=== PATIENT | female | born 1965 | race Caucasian/White ===

== ENCOUNTER 2021-05-26 18:08 | Emergency (ER) | payer BC ==
[2021-05-26] MEDS ORDERED: Ondansetron 4 MG/2 ML SDV IVPUSH STA (18:12)
[2021-05-26] MEDS ORDERED: Sodium Chloride 0.9% 1,000 ML IV SCH (18:15)
--- NOTE | 2021-05-26 19:05 | CT ---
CT HEAD WITHOUT CONTRAST INDICATION: Syncope while sitting, dizziness - no head trauma. TECHNIQUE: Spiral 3.75 mm axial sections were obtained through the brain with axial, sagittal and coronal reconstructions 05/26/21 - no comparisons. Total exam DLP was 1244.99 mGy/cm. FINDINGS: The visualized paranasal sinuses were well aerated, as were the mastoid air cells. No cranial abnormality was identified. The orbits appear to be intact. No shift of midline structures, ventricular abnormalities or abnormal areas of density were identified - no bleeding site or hematoma was seen. Bridges/white matter interface appeared normal. IMPRESSION: Normal CT brain. If symptoms persist - if occult abnormality is suspected clinically, additional examination with IV contrast, or possibly MRI, may be helpful. Report was called to Dr. Booker at 1850 hours 05/26/21. [facility]
--- NOTE | 2021-05-26 20:02 | EDM.PDOC ---
ED HPI GENERAL MEDICAL PROBLEM - General Chief Complaint: Syncope Stated Complaint: HEART Time Seen by Provider: 05/26/21 18:15 Source of Information: Reports: Patient, Family History Limitations: Reports: No Limitations - History of Present Illness INITIAL COMMENTS - FREE TEXT/NARRATIVE: Patient presented to the ED because of a brief syncopal episode. She was standing at [place], felt dizzy, and then she passed out for 2-3 minutes. There is no associated chest pain,palpitations, N/V. She had a similar episode in the past but never saw a doctor. 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: Neurological History: Reports: Parkinson's - Infectious Disease History Infectious Disease History: Reports: Chicken Pox - Past Surgical History Cardiovascular Surgical History: Reports: None Neurological Surgical History: Reports: None Dermatological Surgical History: Reports: None Social & Family History - Family History Family Medical History: No Pertinent Family History - Tobacco Use Tobacco Use Status *Q: Never Tobacco User Second Hand Smoke Exposure: No - Caffeine Use Caffeine Use: Reports: None - Recreational Drug Use Recreational Drug Use: No ED ROS GENERAL - Review of Systems Review Of Systems: See Below Constitutional: Reports: No Symptoms HEENT: Reports: No Symptoms Respiratory: Reports: No Symptoms Cardiovascular: Reports: No Symptoms Endocrine: Reports: No Symptoms GI/Abdominal: Reports: No Symptoms : Reports: No Symptoms Musculoskeletal: Reports: No Symptoms Skin: Reports: No Symptoms Neurological: Reports: Dizziness, Syncope ED EXAM, NEURO - Physical Exam Exam: See Below Exam Limited By: No Limitations General Appearance: Alert, No Apparent Distress Eye Exam: Bilateral Eye: PERRL Ears: Normal External Exam, Normal Canal Nose: Normal Inspection, Normal Mucosa, No Blood Throat/Mouth: Normal Inspection, Normal Lips, Normal Teeth, Normal Gums Head Exam: Atraumatic, Normocephalic Neck: Normal Inspection, Supple, Non-Tender, Full Range of Motion Respiratory/Chest: No Respiratory Distress, Lungs Clear, Normal Breath Sounds Cardiovascular: Normal Peripheral Pulses, Regular Rate, Rhythm, No Edema, No Gallop GI/Abdominal: Normal Bowel Sounds, Soft, Non-Tender, No Organomegaly, No Distention, No Abnormal Bruit Neurological: Alert, Normal Mood/Affect, Normal Dorsiflexion, CN II-XII Intact #1 Interpretation EKG Date: 05/26/21 Time: 17:59 Rhythm: NSR Rate (Beats/Min): 70 [place]: Normal P-Wave: Present QRS: Normal ST-T: Normal QT: Normal VA/PQ Interval: 175 Comparison: NA - No Prior EKG EKG Interpretation Comments: NSR Course - Vital Signs Text/Narrative:: Lab/EKG/Head CT result was reviewed and discussed with patient and her NS 1 L bolus Zofran 4 mg IV x1 Last Recorded V/S: Last Vital Signs Temp 35.6 C L 05/26/21 18:28 Pulse 67 05/26/21 19:32 Resp 18 05/26/21 19:32 BP 115/80 05/26/21 19:32 Pulse Ox 97 05/26/21 19:32 - Orders/Labs/Meds Orders: Active Orders 24 hr Category Date Time Status Sodium Chloride 0.9% [Normal Saline] 1,000 ml Med 05/26/21 18:15 Active IV ASDIRECTED EKG 12 Lead [EK] Routine Ther 05/26/21 18:11 Ordered Medication Orders Sodium Chloride (Normal Saline) 1,000 mls @ 999 mls/hr IV ASDIRECTED ANTONELLA Last Admin: 05/26/21 18:42 Dose: 999 mls/hr Documented by: CLAUDIA Labs: Laboratory Tests 05/26/21 05/26/21 05/26/21 Range/Units 18:18 18:18 18:18 WBC 7.5 (3.0-10.3) x10-3/uL RBC 4.18 (3.60-5.20) x10(6)uL Hgb 12.6 (11.4-15.5) g/dL Hct 37.6 (34.2-48.2) % MCV 90.1 (76.7-100.5) fL MCH 30.2 (23.9-33.9) pg MCHC 33.5 (31.9-34.8) g/dL RDW 13.4 (12.3-16.5) % Plt Count 366 (151-488) x10(3)uL MPV 6.9 L (7.1-12.4) fL Neut % (Auto) 40.9 (30.8-76.2) % Lymph % (Auto) 48.8 (18.4-52.1) % [place] % (Auto) 5.8 (4.4-15.7) % Eos % (Auto) 3.7 (0.6-8.1) % Baso % (Auto) 0.8 (0.2-1.5) % Neut # (Auto) 3.1 (1.5-6.3) x10-3/uL Lymph # (Auto) 3.7 (1.0-4.4) x10-3/uL [place] # (Auto) 0.4 (0.3-1.0) x10-3/uL Eos # (Auto) 0.3 (0.0-0.8) x10-3/uL Baso # (Auto) 0.1 (0.0-0.1) x10-3/uL Sodium 138 (135-145) mmol/L Potassium 3.8 (3.5-5.3) mmol/L Chloride 103 (100-110) mmol/L Carbon Dioxide 23 (21-32) mmol/L BUN 25 H (7-18) mg/dL Creatinine 1.0 (0.55-1.02) mg/dL Est Cr Clr Drug Dosing TNP Estimated GFR (MDRD) 57 L (>60) BUN/Creatinine Ratio 25.0 H (9-20) Glucose 142 H (80-116) mg/dL Calcium 8.6 (8.6-10.2) mg/dL Total Bilirubin 0.5 (0.1-1.3) mg/dL AST 15 (5-25) IU/L ALT 7 L (12-36) U/L Alkaline Phosphatase 97 (56-112) IU/L Troponin I 4.5 (4.0-60.3) pg/mL Total Protein 7.3 (6.0-8.0) g/dL Albumin 3.8 (3.5-5.2) g/dL Globulin 3.5 g/dL Albumin/Globulin Ratio 1.1 Meds: Medications Generic Name Dose Route Start Last Admin Trade Name Freq PRN Reason Stop Dose Admin Sodium Chloride 1,000 mls @ 999 mls/hr 05/26/21 18:15 05/26/21 18:42 Normal Saline IV 999 mls/hr ASDIRECTED ANTONELLA Administration Discontinued Medications Generic Name Dose Route Start Last Admin Trade Name Rita PRN Reason Stop Dose Admin Ondansetron HCl 4 mg 05/26/21 18:12 05/26/21 18:42 Ondansetron 4 Mg/2 Ml Sdv IVPUSH 05/26/21 18:13 4 mg NOW STA Administration Departure - Departure Time of Disposition: 20:00 Disposition: Home, Self-Care 01 Condition: Good Clinical Impression: Syncope, Dehydration - Discharge Information Instructions: Dehydration, Adult, [id number], Syncope, [id number] Referrals: Diane Gandhi NP [Primary Care Provider] - Forms: ED Department Discharge Additional Instructions: Please read discharge instructions on dehydration and syncope Drink at least 2 liters of water daily Follow up as needed Sepsis Event Note (ED) - Evaluation Sepsis Screening Result: No Definite Risk - Focused Exam Vital Signs: Vital Signs Temp Pulse Resp BP Pulse Ox 05/26/21 19:32 67 18 115/80 97 05/26/21 18:28 35.6 C L 69 18 104/74 94 L 05/26/21 18:10 35.6 C L 70 18 113/77 94 L - My Orders Last 24 Hours: My Active Orders 05/26/21 18:11 EKG 12 Lead [EK] Routine 05/26/21 18:15 Sodium Chloride 0.9% [Normal Saline] 1,000 ml IV ASDIRECTED - Assessment/Plan Last 24 Hours: My Active Orders 05/26/21 18:11 EKG 12 Lead [EK] Routine 05/26/21 18:15 Sodium Chloride 0.9% [Normal Saline] 1,000 ml IV ASDIRECTED
== END 2021-05-26 20:20 | disposition home or self-care (01) ==
LOC: FB.ED 18:08
DX: R55 Syncope and collapse (principal); E86.0 Dehydration; I10 Essential (primary) hypertension
CPT/HCPCS: 36415; 70450; 80053; 84484; 85025; 93005; 96374; 99284-25; J2405; J7030